=== PATIENT | male | born 1935 | race Caucasian/White ===

== ENCOUNTER 2017-10-22 23:45 | Emergency (ER) | payer OTHER, MEDICARE ==
[2017-10-22 23:55] VITALS: TEMP 97.7; BMI 21.9
--- NOTE | 2017-10-23 01:50 | PDOC ---
History of Present Illness - General Chief Complaint: Pain Stated Complaint: L CALF PAIN Time Seen by Provider: 10/22/17 23:48 - History of Present Illness Initial Comments: This 81-year-old man with a history of coronary artery disease (s/p CABG), HTN, A. fib (s/p ablation procedure) and prostate cancer is brought in by ambulance with a one-week history of bilateral lower extremity edema and one-day history of left lower leg pain. Recent history notable for left shoulder procedure at [facility] 10/08/17: Patient had 2 previous procedures in this joint over the last 2 years. He has a chronic infection in the area and is currently receiving vancomycin through a PICC line. He denies overuse/trauma to the left lower leg. He denies shortness of breath/ chest pain. Past History - Past Medical History Allergies/Adverse Reactions: Allergies Allergy/AdvReac Type Severity Reaction Status Date / Time No Known Allergies Allergy Unverified 03/03/16 12:40 Home Medications: Ambulatory Orders Aspirin [ASA -] 81 mg PO WEEKLY 03/03/16 Atenolol [Tenormin -] 25 mg PO DAILY 03/03/16 Atorvastatin Ca [Lipitor] 40 mg PO DAILY 03/03/16 Bicalutamide [Casodex] 50 mg PO DAILY 03/03/16 Furosemide [Lasix -] 20 mg PO DAILY 03/03/16 Multivit-Min/Iron Fum/Folic AC [Phqph-Ubjosop-Zocqrgpc Tablet] 1 each PO DAILY 03/03/16 Ramipril [Altace] 2.5 mg PO DAILY 03/03/16 Tamoxifen Citrate 10 mg PO DAILY 03/03/16 Vitamin E Acetate 25,000 gm MC 03/03/16 Cardiac Disorders: Yes (A FIB) COPD: No Disorders: Yes (PROSTATE CANCER) HTN: Yes - Surgical History Cardiac Surgery: Yes (CABG 5 VESSEL) - Suicide/Smoking/Psychosocial Hx Smoking History: Unknown if ever smoked Have you smoked in the past 12 months: No Number of Cigarettes Smoked Daily: 0 Information on smoking cessation initiated: No Hx Alcohol Use: No Drug/Substance Use Hx: No Substance Use Type: None Review of Systems - Review of Systems Able to Perform ROS?: Yes Comments:: 12 point review of systems is negative except for what is noted in the history of present illness *Physical Exam - Vital Signs Last Vital Signs Temp Pulse Resp BP Pulse Ox 97.7 F 72 14 141/59 99 10/22/17 23:51 10/22/17 23:51 10/22/17 23:51 10/22/17 23:51 10/22/17 23:51 - Physical Exam Comments: GENERAL: Elderly man, alert and oriented 3, in no acute distress HEAD: Normal with no signs of trauma. EYES: PERRLA, EOMI, sclera anicteric, conjunctiva clear. ENT: Ears normal, nares patent, oropharynx clear without exudates. Dry mucous membranes. NECK: Normal range of motion, supple without lymphadenopathy, JVD, or masses. LUNGS: Breath sounds equal, clear to auscultation bilaterally. No wheezes, and no crackles. HEART:Regular rate and rhythm, normal S1 and S2 without murmur, rub or gallop. ABDOMEN:.normal bowel sounds No guarding,tenderness or rebound.No masses No distention. EXTREMITIES: Right lower extremity-1+ pitting edema below knee; remainder of exam normal Left lower extremity-1+ pitting edema below knee; mild tenderness to palpation posterior distal half of lower leg NEUROLOGICAL: Cranial nerves II through XII grossly intact. Normal speech. No focal neurological deficits. MUSCULOSKELETAL: Back non-tender to palpation, no CVA tenderness SKIN: Warm, Dry, normal turgor, no rashes or lesions noted. ED Treatment Course - LABORATORY CBC & Chemistry Diagram: 10/23/17 04:30 10/23/17 04:30 Medical Decision Making - Medical Decision Making Doppler duplex study of the bilateral lower extremities reveals right femoral DVT; there is also superficial thrombophlebitis of the right calf veins. Left lower extremity is normal without evidence of DVT . Results discussed with the patient. CBC/INR/chemistry profile drawn. Patient states that he is unwilling to stay and will sign out AMA. He was fully explained to the patient that there is extremely risky for him to not be treated for his acute DVT. He realizes that this is a potentially life- threatening situation. The patient states that he "must go home" and will call his general medical doctor later today. The patient is here alone in the ER and has no one at home to contact. Attempt was made to contact the patient's PMD (Dr. Austin Lynn); coverage physician only covered critical care medicine/pulmonology. Patient given Lovenox subcutaneous 80 units. *DC/Admit/Observation/Transfer Diagnosis at time of Disposition: Right femoral vein DVT Qualifiers: Chronicity: acute Qualified Code(s): I82.411 - Acute embolism and thrombosis of right femoral vein - Discharge Dispostion Disposition: AGAINST MEDICAL ADVICE Condition at time of disposition: Stable - Referrals - Patient Instructions Printed Discharge Instructions: Deep Vein Thrombosis Additional Instructions: You have been diagnosed with a blood clot in your right thigh You MUST contact and follow-up with your medical doctor within 24 hours You have received 1 dose of Lovenox SQ(80 units) while in ER - Post Discharge Activity
[2017-10-23] MEDS ORDERED: ENOXAPARIN NA (PORCINE) 80 MG/0.8 ML DISP.SYRIN SQ SCH (04:30)
[2017-10-23] MEDS ORDERED: ENOXAPARIN NA (PORCINE) 100 MG/1 ML DISP.SYRIN SQ ONE (04:40)
[2017-10-23 04:57] VITALS: BP 179/89; PULSE 73
[2017-10-23 05:30] LABS: BASO % 0.5 % (0-2.0); EOS % 1.6 % (0-4.5); HEMATOCRIT 27.3 % (35.4-49); HEMOGLOBIN 8.9 GM/dL (11.7-16.9); LYMPH % 19.5 % (8-40); MCH 27.7 pg (25.7-33.7); MCHC 32.6 g/dl (32.0-35.9); MEAN PLT VOLUME 8.1 fl (7.5-11.1); MONO % 8.1 % (3.8-10.2); NEUT % 70.3 % (42.8-82.8); PLATELET COUNT 283 K/MM3 (134-434); RBC 3.21 M/mm3 (4.00-5.60); WHITE BLOOD COUNT 7.4 K/mm3 (4.0-10.0)
[2017-10-23 05:55] LABS: INR 1.23 (0.82-1.09); PROTHROMBIN TIME (PATIENT) 13.9 SEC (9.98-11.88)
[2017-10-23 06:32] LABS: ALBUMIN 3.2 g/dl (3.4-5.0); ALK PHOS 83 U/L (45-117); ANION GAP 8 (8-16); BILIRUBIN,TOTAL 0.5 mg/dL (0.2-1.0); BLOOD UREA NITROGEN 14 mg/dL (7-18); CALCIUM 8.5 mg/dL (8.5-10.1); CHLORIDE 105 mmol/L (98-107); CO2 27 mmol/L (21-32); GLUCOSE,RANDOM 103 mg/dL (74-106); POTASSIUM 3.9 mmol/L (3.5-5.1); SGOT/AST 22 U/L (15-37); SGPT/ALT 24 U/L (12-78); SODIUM 140 mmol/L (136-145); TOT PROT 6.3 g/dl (6.4-8.2)
== END 2017-10-23 04:57 | disposition left against medical advice (07) ==
LOC: FER 23:45
PROC: 3E023GC Introduction of Other Therapeutic Substance into Muscle, Percutaneous Approach (ICD-10-PCS; principal; 2017-10-22)
DX: I82.411 Acute embolism and thrombosis of right femoral vein (principal); I48.91 Unspecified atrial fibrillation; I10 Essential (primary) hypertension; Z85.46 Personal history of malignant neoplasm of prostate; Z95.1 Presence of aortocoronary bypass graft
CPT/HCPCS: 36415; 80053; 85025; 85610; 93970-TC; 99282-25

== ENCOUNTER 2021-12-11 16:31 | Inpatient (IN) | payer OTHER, MEDICARE ==
[2021-12-11 17:26] VITALS: BMI 18.7
[2021-12-11 18:25] LABS: INR 1.26 (0.83-1.09); PROTHROMBIN TIME (PATIENT) 14.5 SEC (9.7-13.0)
[2021-12-11 18:28] LABS: ACTIVATED PTT 32.8 SECONDS (25.2-36.5)
[2021-12-11 18:32] LABS: ALBUMIN 3.6 g/dl (3.4-5.0); BILIRUBIN,TOTAL 1.1 mg/dl (0.2-1); CALCIUM 10.5 mg/dl (8.5-10); CREATININE 0.9 mg/dl (0.55-1.3); TOT PROT 6.4 g/dl (6.4-8.2)
[2021-12-11 21:22] LABS: SARS AG REFLEX COV19 SEND OUT negative (Negative)
[2021-12-11] MEDS ORDERED: ENOXAPARIN NA (PORCINE) 80 MG/0.8 ML DISP.SYRIN SQ ONE (21:33)
[2021-12-11] MEDS ORDERED: ENOXAPARIN NA (PORCINE) 100 MG/1 ML DISP.SYRIN SQ ONE (21:35)
[2021-12-11 21:59] LABS: BASO % 0.6 % (0-2.0); EOS % 0.8 % (0-4.5); HEMATOCRIT 34.6 % (35.4-49); HEMOGLOBIN 12.5 GM/dL (11.7-16.9); LYMPH % 21.9 % (8-40); MCH 32.9 pg (25.7-33.7); MCHC 36.1 g/dl (32.0-35.9); MEAN CELL VOLUME 91.2 fl (80-96); MEAN PLT VOLUME 9.3 fl (7.5-11.1); MONO % 8.9 % (3.8-10.2); NEUT % 67.8 % (42.8-82.8); PLATELET COUNT 180 10^3/uL (134-434); RDW 13.9 % (11.9-15.9); WHITE BLOOD COUNT 5.6 K/mm3 (4.0-10.0)
[2021-12-12] MEDS ORDERED: ASPIRIN 81 MG CHEWABLE TABLETS PO SCH (00:15)
[2021-12-12 08:05] LABS: BASO % 0.4 % (0-2.0); EOS % 1.1 % (0-4.5); HEMATOCRIT 33.3 % (35.4-49); HEMOGLOBIN 11.9 GM/dL (11.7-16.9); LYMPH % 25.2 % (8-40); MCH 32.3 pg (25.7-33.7); MCHC 35.7 g/dl (32.0-35.9); MEAN CELL VOLUME 90.5 fl (80-96); MEAN PLT VOLUME 9.3 fl (7.5-11.1); MONO % 8.9 % (3.8-10.2); NEUT % 64.4 % (42.8-82.8); PLATELET COUNT 167 10^3/uL (134-434); RBC 3.67 M/mm3 (4.00-5.60); WHITE BLOOD COUNT 6.3 K/mm3 (4.0-10.0)
[2021-12-12 08:08] LABS: CALCIUM 9.6 mg/dL (8.5-10.1)
[2021-12-12 08:09] LABS: BLOOD UREA NITROGEN 30.5 mg/dL (7-18); MAGNESIUM 2.1 mg/dL (1.8-2.4)
[2021-12-12 08:12] LABS: CREATININE 1.1 mg/dL (0.55-1.3); PHOSPHOROUS 2.2 mg/dL (2.5-4.9)
[2021-12-12] MEDS ORDERED: PANTOPRAZOLE 40 MG TABLET ONE (09:36)
[2021-12-12] MEDS ORDERED: RAMIPRIL 2.5 MG CAPSULE PO SCH (10:00)
[2021-12-12] MEDS: BICALUTAMIDE 50 MG TABLET (FP) PO SCH (10:25)
[2021-12-12] MEDS: FUROSEMIDE 20 MG TABLET (FP) PO SCH (10:25)
[2021-12-12] MEDS: TAMOXIFEN CITRATE 10 MG TABLET PO SCH (10:26)
[2021-12-12] MEDS: MULTIVITAMINS (DAILY MVI) TABLET (FP) PO SCH (10:26)
[2021-12-12] MEDS: ESCITALOPRAM OXALATE 20 MG TABLET PO SCH (10:26)
[2021-12-12] MEDS: ENOXAPARIN NA (PORCINE) 80 MG/0.8 ML DISP.SYRIN SQ SCH ×2 (10:26→21:13)
[2021-12-12] MEDS: PANTOPRAZOLE 40 MG TABLET PO SCH (10:26)
[2021-12-12 18:46] LABS: N-TERMINAL BNP 382.3 pg/ml (5-450)
[2021-12-12] MEDS ORDERED: ATORVASTATIN CA 40 MG TABLET (FP) PO SCH (22:00)
[2021-12-13 07:28] LABS: CALCIUM 9.4 mg/dL (8.5-10.1)
[2021-12-13 07:29] LABS: ALBUMIN 3.2 g/dl (3.4-5.0); BLOOD UREA NITROGEN 31.3 mg/dL (7-18); MAGNESIUM 2.2 mg/dL (1.8-2.4)
[2021-12-13 07:32] LABS: CREATININE 0.9 mg/dL (0.55-1.3)
[2021-12-13 07:34] LABS: BILIRUBIN,TOTAL 1.8 mg/dL (0.2-1); TOT PROT 5.9 g/dl (6.4-8.2)
[2021-12-13] MEDS ORDERED: ESCITALOPRAM OXALATE 10 MG TABLET ONE (08:56)
[2021-12-13 09:09] LABS: BASO % 0.7 % (0-2.0); EOS % 2.5 % (0-4.5); HEMATOCRIT 36.1 % (35.4-49); HEMOGLOBIN 12.4 GM/dL (11.7-16.9); LYMPH % 21.9 % (8-40); MCH 31.9 pg (25.7-33.7); MCHC 34.2 g/dl (32.0-35.9); MEAN CELL VOLUME 93.1 fl (80-96); MEAN PLT VOLUME 9.1 fl (7.5-11.1); MONO % 7.2 % (3.8-10.2); NEUT % 67.7 % (42.8-82.8); PLATELET COUNT 173 10^3/uL (134-434); RBC 3.88 M/mm3 (4.00-5.60); RDW 13.9 % (11.9-15.9); WHITE BLOOD COUNT 5.3 K/mm3 (4.0-10.0)
[2021-12-13] MEDS: ENOXAPARIN NA (PORCINE) 80 MG/0.8 ML DISP.SYRIN SQ SCH (09:41)
[2021-12-13] MEDS: FUROSEMIDE 20 MG TABLET (FP) PO SCH (09:41)
[2021-12-13] MEDS: ESCITALOPRAM OXALATE 20 MG TABLET PO SCH (09:41)
[2021-12-13] MEDS: PANTOPRAZOLE 40 MG TABLET PO SCH (09:41)
[2021-12-13] MEDS: MULTIVITAMINS (DAILY MVI) TABLET (FP) PO SCH (09:41)
[2021-12-13] MEDS ORDERED: ASPIRIN COATED 81 MG TABLET.EC PO SCH (10:00)
[2021-12-13 13:07] LABS: SARS-CoV-2 NAA Not Detected (Not Detected)
[2021-12-13] MEDS ORDERED: ATENOLOL 25 MG TABLET (FP) PO ONE (14:10)
[2021-12-13] MEDS: TAMOXIFEN CITRATE 10 MG TABLET PO SCH (14:11)
[2021-12-13] MEDS: BICALUTAMIDE 50 MG TABLET (FP) PO SCH (14:11)
[2021-12-13] MEDS: LACTATED RINGERS SOLUTION 1,000 ML/1,000 ML INFUS.BAG IV SCH (16:26)
[2021-12-13] MEDS: CYPROHEPTADINE HCL 4 MG TABLET PO SCH ×2 (17:26→21:13)
[2021-12-13] MEDS: APIXABAN 5 MG TABLET PO SCH (21:13)
[2021-12-13] MEDS: ATORVASTATIN CA 40 MG TABLET (FP) PO SCH (22:15)
[2021-12-14] MEDS ORDERED: ESCITALOPRAM OXALATE 10 MG TABLET ONE (09:28)
[2021-12-14] MEDS: MULTIVITAMINS (DAILY MVI) TABLET (FP) PO SCH (09:36)
[2021-12-14] MEDS: PANTOPRAZOLE 40 MG TABLET PO SCH (09:36)
[2021-12-14] MEDS: TAMOXIFEN CITRATE 10 MG TABLET PO SCH (09:37)
[2021-12-14] MEDS: CYPROHEPTADINE HCL 4 MG TABLET PO SCH ×4 (09:37→21:17)
[2021-12-14] MEDS: ESCITALOPRAM OXALATE 20 MG TABLET PO SCH (09:38)
[2021-12-14] MEDS: APIXABAN 5 MG TABLET PO SCH ×2 (09:42→21:14)
[2021-12-14] MEDS: BICALUTAMIDE 50 MG TABLET (FP) PO SCH (09:57)
[2021-12-14 12:32] LABS: BASO % 0.4 % (0-2.0); EOS % 1.3 % (0-4.5); HEMATOCRIT 30.3 % (35.4-49); LYMPH % 14.4 % (8-40); MCHC 36.3 g/dl (32.0-35.9); MEAN CELL VOLUME 90.9 fl (80-96); MEAN PLT VOLUME 8.5 fl (7.5-11.1); MONO % 5.4 % (3.8-10.2); NEUT % 78.5 % (42.8-82.8); PLATELET COUNT 149 10^3/uL (134-434); RBC 3.34 M/mm3 (4.00-5.60); RDW 13.9 % (11.9-15.9); WHITE BLOOD COUNT 7.2 K/mm3 (4.0-10.0)
[2021-12-14 13:03] LABS: ALBUMIN 2.8 g/dl (3.4-5.0); BLOOD UREA NITROGEN 26.2 mg/dL (7-18)
[2021-12-14 13:06] LABS: CREATININE 0.8 mg/dL (0.55-1.3)
[2021-12-14 13:07] LABS: BILIRUBIN,TOTAL 0.6 mg/dL (0.2-1)
[2021-12-14 13:08] LABS: TOT PROT 5.5 g/dl (6.4-8.2)
[2021-12-14 13:11] LABS: N-TERMINAL BNP 314.7 pg/ml (5-450)
[2021-12-14] MEDS: ATORVASTATIN CA 40 MG TABLET (FP) PO SCH (21:14)
[2021-12-15] MEDS ORDERED: ESCITALOPRAM OXALATE 10 MG TABLET ONE (09:04)
[2021-12-15] MEDS: APIXABAN 5 MG TABLET PO SCH ×2 (09:52→21:31)
[2021-12-15] MEDS: MULTIVITAMINS (DAILY MVI) TABLET (FP) PO SCH (09:52)
[2021-12-15] MEDS: PANTOPRAZOLE 40 MG TABLET PO SCH (09:53)
[2021-12-15] MEDS: ESCITALOPRAM OXALATE 20 MG TABLET PO SCH (09:53)
[2021-12-15] MEDS: TAMOXIFEN CITRATE 10 MG TABLET PO SCH (09:53)
[2021-12-15] MEDS: BICALUTAMIDE 50 MG TABLET (FP) PO SCH (09:53)
[2021-12-15] MEDS: LACTATED RINGERS SOLUTION 1,000 ML/1,000 ML INFUS.BAG IV SCH (09:56)
[2021-12-15] MEDS: ATORVASTATIN CA 40 MG TABLET (FP) PO SCH (21:31)
[2021-12-15] MEDS: CYPROHEPTADINE HCL 4 MG TABLET PO SCH (21:32)
[2021-12-16] MEDS ORDERED: ESCITALOPRAM OXALATE 10 MG TABLET ONE (10:19)
[2021-12-16] MEDS: APIXABAN 5 MG TABLET PO SCH ×2 (10:23→21:56)
[2021-12-16] MEDS: BICALUTAMIDE 50 MG TABLET (FP) PO SCH (10:23)
[2021-12-16] MEDS: ESCITALOPRAM OXALATE 20 MG TABLET PO SCH (10:24)
[2021-12-16] MEDS: MULTIVITAMINS (DAILY MVI) TABLET (FP) PO SCH (10:24)
[2021-12-16] MEDS: PANTOPRAZOLE 40 MG TABLET PO SCH (10:24)
[2021-12-16] MEDS: TAMOXIFEN CITRATE 10 MG TABLET PO SCH (10:25)
[2021-12-16] MEDS: LACTATED RINGERS SOLUTION 1,000 ML/1,000 ML INFUS.BAG IV SCH (14:03)
[2021-12-16] MEDS: ATORVASTATIN CA 40 MG TABLET (FP) PO SCH (21:56)
[2021-12-16] MEDS: CYPROHEPTADINE HCL 4 MG TABLET PO SCH (21:56)
[2021-12-17] MEDS: LACTATED RINGERS SOLUTION 1,000 ML/1,000 ML INFUS.BAG IV SCH (02:51)
[2021-12-17] MEDS ORDERED: ESCITALOPRAM OXALATE 10 MG TABLET ONE (09:50)
[2021-12-17] MEDS: MULTIVITAMINS (DAILY MVI) TABLET (FP) PO SCH (09:53)
[2021-12-17] MEDS: PANTOPRAZOLE 40 MG TABLET PO SCH (09:53)
[2021-12-17] MEDS: BICALUTAMIDE 50 MG TABLET (FP) PO SCH (09:53)
[2021-12-17] MEDS: APIXABAN 5 MG TABLET PO SCH (09:53)
[2021-12-17] MEDS: ESCITALOPRAM OXALATE 20 MG TABLET PO SCH (09:53)
[2021-12-17] MEDS: TAMOXIFEN CITRATE 10 MG TABLET PO SCH (09:54)
[2021-12-17 14:25] VITALS: BP 124/51; PULSE 43; TEMP 97.9
== END 2021-12-17 15:20 | disposition home or self-care (01) | DRG 175 ==
LOC: FER 16:31 → FM/S 23:35 → UNDOADMIN 12-12 00:32 → FM/S 12-12 00:32 → J4S 12-13 01:29
PROVIDERS: ADMIT Hospitalist; ATTEND Internal Medicine
DX: I26.99 Other pulmonary embolism without acute cor pulmonale (principal); E43 Unspecified severe protein-calorie malnutrition; I82.413 Acute embolism and thrombosis of femoral vein, bilateral; M48.54XA Collapsed vertebra, not elsewhere classified, thoracic region, initial encounter for fracture; Z68.1 Body mass index [BMI] 19.9 or less, adult; C61 Malignant neoplasm of prostate; I10 Essential (primary) hypertension; I25.10 Atherosclerotic heart disease of native coronary artery without angina pectoris; K21.9 Gastro-esophageal reflux disease without esophagitis; E78.00 Pure hypercholesterolemia, unspecified; E78.5 Hyperlipidemia, unspecified; I95.9 Hypotension, unspecified; R00.1 Bradycardia, unspecified; R91.1 Solitary pulmonary nodule; I51.7 Cardiomegaly; Z95.1 Presence of aortocoronary bypass graft
CPT/HCPCS: 36415; 71275-TC; 80048; 80053; 82962; 83735; 83880; 84100; 84484; 85025; 85610; 85730; 87426; 93005; 93306-TC; 93970-TC; 97116-GP; 97161-GP; 99285-25; C9803; Q9967; U0003; U0005

== ENCOUNTER 2022-03-24 17:49 | Observation (INO) | payer OTHER, MEDICARE ==
[2022-03-24 19:01] LABS: HEMATOCRIT 35.4 % (35.4-49); HEMOGLOBIN 12.7 G/dL (11.7-16.9); MCH 33.7 pg (25.7-33.7); MCHC 35.8 g/dl (32.0-35.9); MEAN CELL VOLUME 93.9 fl (80-96); MEAN PLT VOLUME 8.7 fl (7.5-11.1); PLATELET COUNT 169.3 10^3/uL (134-434); RBC 3.77 10^6/uL (4.00-5.60); RDW 13.9 % (11.9-15.9); WHITE BLOOD COUNT 5.1 10^3/uL (4.0-10.8)
[2022-03-24 19:07] LABS: ALBUMIN 3.4 g/dl (3.4-5.0); CALCIUM 9.8 mg/dl (8.5-10); CREATININE 0.9 mg/dl (0.55-1.3); MAGNESIUM 1.9 mg/dL (1.8-2.4); PHOSPHOROUS 1.3 mg/dl (2.5-4.9); TOT PROT 5.8 g/dl (6.4-8.2)
[2022-03-24 19:26] LABS: INR 1.97 (0.83-1.09); PROTHROMBIN TIME (PATIENT) 22.8 SEC (9.7-13.0)
[2022-03-24 19:29] LABS: ACTIVATED PTT 34.3 SECONDS (25.2-36.5)
[2022-03-24 19:29] LABS: VENOUS O2 SATURATION 99.4 % (70-80); VENOUS PCO2 < 16.7 mmHg (38-52)
[2022-03-24 19:31] LABS: VENOUS PH 7.636 (7.310-7.410)
[2022-03-24 19:46] LABS: N-TERMINAL BNP 505.3 pg/ml (5-450)
[2022-03-24] MEDS ORDERED: FUROSEMIDE 40 MG/4 ML INJECTABLE VIAL IVPUSH ONE (20:56)
[2022-03-24] MEDS ORDERED: FUROSEMIDE 40 MG/4 ML INJECTABLE VIAL ONE (21:10)
[2022-03-25] MEDS: APIXABAN 5 MG TABLET PO SCH ×3 (00:21→21:07)
[2022-03-25] MEDS ORDERED: BENZOCAINE/MENTH/CETYLPYRD CL 1 EACH LOZENGE MM PRN (00:46)
[2022-03-25 01:06] LABS: PH,URINE 7.5 (5.0-8.0); URINE APPEARANCE CLEAR; URINE BILIRUBIN NEGATIVE (NEGATIVE); URINE COLOR YELLOW; URINE GLUCOSE (UA) NEGATIVE (NEGATIVE); URINE KETONE NEGATIVE (NEGATIVE); URINE LEUK ESTERASE NEGATIVE (NEGATIVE); URINE NITRITE NEGATIVE (NEGATIVE); URINE PROTEIN NEGATIVE (NEGATIVE); URINE UROBILINOGEN 0.2 mg/dL (0.2-1.0)
[2022-03-25 01:09] LABS: COCAINE, UR NEGATIVE (NEGATIVE); METHADONE, UR NEGATIVE (NEGATIVE); OPIATES, URI NEGATIVE (NEGATIVE); PHENCYCLIDINE,URINE NEGATIVE (NEGATIVE)
[2022-03-25 01:10] LABS: URINE AMPHETAMINES NEGATIVE (NEGATIVE)
[2022-03-25 01:17] LABS: URINE BARBITURATES NEGATIVE (NEGATIVE); URINE BENZODIAZEPINES NEGATIVE (NEGATIVE)
[2022-03-25 09:01] LABS: ALBUMIN 3.4 g/dl (3.4-5.0); CALCIUM 9.6 mg/dl (8.5-10); TOT PROT 5.7 g/dl (6.4-8.2)
[2022-03-25 09:17] LABS: HEMATOCRIT 37.1 % (35.4-49); HEMOGLOBIN 13.1 G/dL (11.7-16.9); MCH 32.8 pg (25.7-33.7); MCHC 35.2 g/dl (32.0-35.9); MEAN CELL VOLUME 93.2 fl (80-96); MEAN PLT VOLUME 8.9 fl (7.5-11.1); PLATELET COUNT 159.8 10^3/uL (134-434); RBC 3.98 10^6/uL (4.00-5.60); RDW 13.9 % (11.9-15.9); WHITE BLOOD COUNT 6.6 10^3/uL (4.0-10.8)
[2022-03-25] MEDS ORDERED: PATIENT'S OWN MEDICATION (NON-FORMULARY) (Alpha Lipoic Acid [Alpha Lipoic Acid] 600 MG Cap PO SCH (10:00)
[2022-03-25] MEDS ORDERED: ASPIRIN 81 MG CHEWABLE TABLETS PO SCH (10:00)
[2022-03-25] MEDS: ESCITALOPRAM OXALATE 20 MG TABLET PO SCH (11:07)
[2022-03-25] MEDS: PANTOPRAZOLE 40 MG TABLET PO SCH (11:07)
[2022-03-25] MEDS: TAMOXIFEN CITRATE 10 MG TABLET PO SCH (11:08)
[2022-03-25] MEDS: BICALUTAMIDE 50 MG TABLET (FP) PO SCH (11:08)
[2022-03-25 12:00] LABS: PLATELET ESTIMATE ADEQUATE
[2022-03-25] MEDS ORDERED: DEXTROSE 5%-0.45% SALINE 1,000 ML IV SCH (15:15)
[2022-03-25] MEDS: ATORVASTATIN CA 40 MG TABLET (FP) PO SCH (21:07)
[2022-03-26 08:17] LABS: ALBUMIN 3.1 g/dl (3.4-5.0); BILIRUBIN,TOTAL 0.9 mg/dl (0.2-1); CALCIUM 9.1 mg/dl (8.5-10); CREATININE 0.9 mg/dl (0.55-1.3); MAGNESIUM 1.9 mg/dL (1.8-2.4); TOT PROT 5.1 g/dl (6.4-8.2)
[2022-03-26 08:22] LABS: HEMATOCRIT 35.9 % (35.4-49); HEMOGLOBIN 12.4 G/dL (11.7-16.9); MCH 32.2 pg (25.7-33.7); MCHC 34.4 g/dl (32.0-35.9); MEAN CELL VOLUME 93.7 fl (80-96); MEAN PLT VOLUME 8.8 fl (7.5-11.1); PLATELET COUNT 141.4 10^3/uL (134-434); RBC 3.83 10^6/uL (4.00-5.60); RDW 13.9 % (11.9-15.9); WHITE BLOOD COUNT 4.9 10^3/uL (4.0-10.8)
[2022-03-26] MEDS: BICALUTAMIDE 50 MG TABLET (FP) PO SCH (09:58)
[2022-03-26] MEDS: PANTOPRAZOLE 40 MG TABLET PO SCH (09:58)
[2022-03-26] MEDS: TAMOXIFEN CITRATE 10 MG TABLET PO SCH (09:58)
[2022-03-26] MEDS: ESCITALOPRAM OXALATE 20 MG TABLET PO SCH (09:58)
[2022-03-26] MEDS: APIXABAN 5 MG TABLET PO SCH ×2 (09:58→21:46)
[2022-03-26] MEDS: ATORVASTATIN CA 40 MG TABLET (FP) PO SCH (21:46)
[2022-03-27 08:20] LABS: ALBUMIN 3.1 g/dl (3.4-5.0); CALCIUM 9.2 mg/dl (8.5-10); CREATININE 0.9 mg/dl (0.55-1.3); MAGNESIUM 1.8 mg/dL (1.8-2.4); TOT PROT 5.2 g/dl (6.4-8.2)
[2022-03-27 08:34] LABS: HEMATOCRIT 33.7 % (35.4-49); MCH 33.4 pg (25.7-33.7); MCHC 35.7 g/dl (32.0-35.9); MEAN CELL VOLUME 93.5 fl (80-96); MEAN PLT VOLUME 8.7 fl (7.5-11.1); PLATELET COUNT 131.9 10^3/uL (134-434); RDW 13.8 % (11.9-15.9); WHITE BLOOD COUNT 5.3 10^3/uL (4.0-10.8)
[2022-03-27] MEDS: TAMOXIFEN CITRATE 10 MG TABLET PO SCH (10:50)
[2022-03-27] MEDS: ESCITALOPRAM OXALATE 20 MG TABLET PO SCH (10:50)
[2022-03-27] MEDS: BICALUTAMIDE 50 MG TABLET (FP) PO SCH (10:50)
[2022-03-27] MEDS: APIXABAN 5 MG TABLET PO SCH ×2 (10:51→21:39)
[2022-03-27] MEDS: PANTOPRAZOLE 40 MG TABLET PO SCH (10:51)
[2022-03-27 17:05] VITALS: BMI 18.1
[2022-03-27] MEDS: ATORVASTATIN CA 40 MG TABLET (FP) PO SCH (21:39)
[2022-03-28 09:23] VITALS: BP 112/42; PULSE 48; TEMP 98.8
[2022-03-28] MEDS: BICALUTAMIDE 50 MG TABLET (FP) PO SCH (09:29)
[2022-03-28] MEDS: PANTOPRAZOLE 40 MG TABLET PO SCH (09:30)
[2022-03-28] MEDS: ESCITALOPRAM OXALATE 20 MG TABLET PO SCH (09:30)
[2022-03-28] MEDS: APIXABAN 5 MG TABLET PO SCH (09:30)
[2022-03-28] MEDS: TAMOXIFEN CITRATE 10 MG TABLET PO SCH (09:30)
[2022-03-28] MEDS ORDERED: CEFTRIAXONE 1 GM in DEXTROSE 5%-WATER - 50 ML IVPB SCH (12:45)
== END 2022-03-28 13:40 | disposition home or self-care (01) ==
LOC: FER 17:49 → FM/S 22:24
PROVIDERS: ADMIT Internal Medicine; ATTEND Nurse Practitioner Acute Care
PROC: 3E0337Z Introduction of Electrolytic and Water Balance Substance into Peripheral Vein, Percutaneous Approach (ICD-10-PCS; principal; 2022-03-24)
PROC: 3E033GC Introduction of Other Therapeutic Substance into Peripheral Vein, Percutaneous Approach (ICD-10-PCS; 2022-03-24)
DX: I25.110 Atherosclerotic heart disease of native coronary artery with unstable angina pectoris (principal); I26.99 Other pulmonary embolism without acute cor pulmonale; R91.1 Solitary pulmonary nodule; I82.411 Acute embolism and thrombosis of right femoral vein; E78.5 Hyperlipidemia, unspecified; Z85.46 Personal history of malignant neoplasm of prostate; R06.02 Shortness of breath; Z86.718 Personal history of other venous thrombosis and embolism; G93.41 Metabolic encephalopathy; Z95.1 Presence of aortocoronary bypass graft; Z96.619 Presence of unspecified artificial shoulder joint; Z87.891 Personal history of nicotine dependence; I11.9 Hypertensive heart disease without heart failure; K21.9 Gastro-esophageal reflux disease without esophagitis
CPT/HCPCS: 0241U-QW; 36415; 70450-TC; 71045-TC-FY; 71275-TC; 80053; 80307; 81003; 81015; 82803; 83735; 83880; 84100; 84484; 85025; 85027; 85610; 85730; 87086; 87186; 93005; 96365; 96375; 97116-GP; 97162-GP; 99285-25; G0378; Q9967

== ENCOUNTER 2022-07-03 12:49 | Observation (INO) | payer OTHER, MEDICARE ==
[2022-07-03 14:15] LABS: INR 2.41 (0.83-1.09)
[2022-07-03 14:18] LABS: ACTIVATED PTT 36.4 SECONDS (25.2-36.5)
[2022-07-03 14:23] LABS: ALBUMIN 3.5 g/dl (3.4-5.0); BILIRUBIN,TOTAL 1.7 mg/dl (0.2-1); CALCIUM 9.8 mg/dl (8.5-10); CREATININE 1.1 mg/dl (0.55-1.3); MAGNESIUM 1.6 mg/dL (1.8-2.4); PHOSPHOROUS 2.5 mg/dl (2.5-4.9); TOT PROT 6.1 g/dl (6.4-8.2)
[2022-07-03 14:34] LABS: HEMATOCRIT 39.3 % (35.4-49); HEMOGLOBIN 13.8 G/dL (11.7-16.9); MCH 33.1 pg (25.7-33.7); MEAN CELL VOLUME 94.6 fl (80-96); RBC 4.15 10^6/uL (4.00-5.60); RDW 13.7 % (11.9-15.9)
[2022-07-03 16:37] LABS: N-TERMINAL BNP 945.9 pg/ml (5-450)
[2022-07-03 17:38] LABS: PLATELET ESTIMATE ADEQUATE
[2022-07-03 18:34] VITALS: RESP 18; BMI 18.5
[2022-07-03] MEDS ORDERED: MAGNESIUM SULF 50% (8.12 MEQ/2 ML-1 GM VIAL) IVPB ONE (22:05)
[2022-07-03] MEDS: APIXABAN 5 MG TABLET PO SCH (22:45)
[2022-07-04 06:25] VITALS: BP 103/49; PULSE 64; TEMP 98.8
[2022-07-04 08:30] LABS: ALBUMIN 2.8 g/dl (3.4-5.0); BILIRUBIN,TOTAL 1.1 mg/dl (0.2-1); CALCIUM 8.8 mg/dl (8.5-10); CREATININE 0.8 mg/dl (0.55-1.3); MAGNESIUM 1.9 mg/dL (1.8-2.4); TOT PROT 4.9 g/dl (6.4-8.2)
[2022-07-04 09:17] LABS: BASO % 0.7 % (0-2.0); EOS % 0.9 % (0-4.5); HEMATOCRIT 33.5 % (35.4-49); HEMOGLOBIN 11.7 GM/dL (11.7-16.9); LYMPH % 19.5 % (8-40); MCH 32.7 pg (25.7-33.7); MCHC 34.9 g/dl (32.0-35.9); MEAN CELL VOLUME 93.9 fl (80-96); MEAN PLT VOLUME 8.6 fl (7.5-11.1); MONO % 9.3 % (3.8-10.2); NEUT % 69.6 % (42.8-82.8); PLATELET COUNT 124 10^3/uL (134-434); RBC 3.57 M/mm3 (4.00-5.60); RDW 13.6 % (11.9-15.9); WHITE BLOOD COUNT 4.8 K/mm3 (4.0-10.0)
[2022-07-04] MEDS ORDERED: BICALUTAMIDE 50 MG TABLET (FP) PO SCH (10:00)
[2022-07-04] MEDS ORDERED: ESCITALOPRAM OXALATE 20 MG TABLET PO SCH (10:00)
[2022-07-04] MEDS: APIXABAN 5 MG TABLET PO SCH (12:06)
[2022-07-04] MEDS ORDERED: ATORVASTATIN CA 40 MG TABLET (FP) PO SCH (22:00)
== END 2022-07-04 14:31 | disposition home or self-care (01) ==
LOC: FER 12:49 → FM/S 17:22 → INTOOBSV 17:22
PROVIDERS: ADMIT Internal Medicine
PROC: 3E033GC Introduction of Other Therapeutic Substance into Peripheral Vein, Percutaneous Approach (ICD-10-PCS; principal; 2022-07-03)
DX: R06.02 Shortness of breath (principal); I25.10 Atherosclerotic heart disease of native coronary artery without angina pectoris; E78.5 Hyperlipidemia, unspecified; I11.9 Hypertensive heart disease without heart failure; Z95.1 Presence of aortocoronary bypass graft; Z86.718 Personal history of other venous thrombosis and embolism; Z79.01 Long term (current) use of anticoagulants; E83.42 Hypomagnesemia; I48.91 Unspecified atrial fibrillation; F41.8 Other specified anxiety disorders; E87.1 Hypo-osmolality and hyponatremia
CPT/HCPCS: 0241U-QW; 36415; 71045-TC-FY; 80053; 83735; 83880; 84100; 84443; 84484; 85025; 85027; 85379; 85610; 85730; 93005; 96374; 99285-25; G0378